=== PATIENT | male | born 1985 | race Caucasian/White ===

== ENCOUNTER 2018-01-16 17:56 | Emergency (ER) | payer OTHER ==
[2018-01-16 17:59] VITALS: BP 141/87; PULSE 98; TEMP 97; BMI 27.8
--- NOTE | 2018-01-16 18:27 | PDOC ---
History of Present Illness - General Chief Complaint: Pain Stated Complaint: RT ANKLE INJURY Time Seen by Provider: 01/16/18 18:06 History Source: Patient Exam Limitations: Clinical Condition - History of Present Illness Initial Comments: 01/16/18 18:23 Patient with no sig Past medical history present with complain of right ankle pain status post twisting ankle while playing baseball yesterday. Patient reports swelling to medial aspect of right ankle and reported pain is worse with ambulation. Denies any other symptoms Timing/Duration: 24 hours Past History - Past Medical History Allergies/Adverse Reactions: Allergies Allergy/AdvReac Type Severity Reaction Status Date / Time No Known Allergies Allergy Verified 01/16/18 17:59 Home Medications: Ambulatory Orders Ibuprofen 800 mg PO Q8H PRN #20 tablet 01/16/18 COPD: No - Suicide/Smoking/Psychosocial Hx Smoking History: Never smoked Have you smoked in the past 12 months: No Number of Cigarettes Smoked Daily: 0 Hx Alcohol Use: No Drug/Substance Use Hx: No Review of Systems - Review of Systems Able to Perform ROS?: Yes Is the patient limited Welsh proficient: No Constitutional: No: Weakness Respiratory: No: Symptoms reported Cardiac (ROS): No: Symptoms Reported Musculoskeletal: Yes: Joint Pain (right ankle), Joint Swelling (right ankle), Muscle Pain (right ankle) Neurological: No: Weakness, Unsteady Gait All Other Systems: Reviewed and Negative *Physical Exam - Vital Signs Last Vital Signs Temp Pulse Resp BP Pulse Ox 97 F L 98 H 18 141/87 99 01/16/18 17:57 01/16/18 17:57 01/16/18 17:57 01/16/18 17:57 01/16/18 17:57 - Physical Exam Comments: 01/16/18 18:26 GENERAL: Well developed, well nourished. Awake and alert. No acute distress. CARDIOVASCULAR: Regular rate and rhythm. No murmurs, rubs, or gallops. PULMONARY: No evidence of respiratory distress. Lungs clear to auscultation bilaterally. No wheezing, rales or rhonchi. ABDOMINAL: Soft. Non-tender. Non-distended. No rebound or guarding. No organomegaly. Normoactive bowel sounds MUSCULOSKELETAL : mild tenderness over posterior paravertebral muscle or thoracic spine of T8-T10 on bilateral sides. No bony deformities EXTREMITIES: No cyanosis. No clubbing. No edema. No calf tenderness. SKIN: Warm and dry. Normal capillary refill. No rashes. No jaundice. NEUROLOGICAL: Alert, awake, appropriate. No motor deficits in the lower extremities. Gait is normal without ataxia. PSYCHIATRIC: Cooperative. Good eye contact. Appropriate mood and affect. General Appearance: Yes: Nourished, Appropriately Dressed, Mild Distress ED Treatment Course - RADIOLOGY Radiology Studies Ordered: Category Date Time Status ANKLE & FOOT-RIGHT* [RAD] Stat Radiology 01/16/18 18:04 Ordered Medical Decision Making - Medical Decision Making 01/16/18 18:25 Patient with no significant past medical history presenting with complain of right ankle pain status post twisting ankle yesterday. Exam significant for moderate swelling to medial aspect of right ankle with moderate tenderness. Right ankle x-ray ordered. Treat based on x-ray results 01/16/18 19:02 X-ray shows evulsion fracture of styloid of lateral malleolus. Patient put on a cast splint and Panchito wrap. Patient given crutches to keep weight off ankle. Referral given for to [facility] 01/16/18 19:43 *DC/Admit/Observation/Transfer Diagnosis at time of Disposition: Ankle fracture, lateral malleolus, closed Qualifiers: Encounter type: initial encounter Fracture alignment: nondisplaced Laterality: left Qualified Code(s): S82.65XA - Nondisplaced fracture of lateral malleolus of left fibula, initial encounter for closed fracture - Discharge Dispostion Disposition: HOME Condition at time of disposition: Stable Decision to Admit order: No - Prescriptions Prescriptions: Ibuprofen 800 mg PO Q8H PRN #20 tablet PRN Reason: pain - Referrals Referrals: Larry Chowdhury MD [Staff Physician] - - Patient Instructions Printed Discharge Instructions: DI for Ankle Fracture Additional Instructions: Take prescribed medication as needed for pain. Keep weights of left ankle on to orthopedics follow-up. Keep left ankle splints on until orthopedics follow-up. - Post Discharge Activity Forms/Work/School Notes: Back to Work
== END 2018-01-16 19:13 | disposition home or self-care (01) ==
LOC: JERFT 17:56
PROC: 2W3QX1Z Immobilization of Right Lower Leg using Splint (ICD-10-PCS; principal; 2018-01-16)
DX: S82.65XA Nondisplaced fracture of lateral malleolus of left fibula, initial encounter for closed fracture (principal); X50.1XXA Overexertion from prolonged static or awkward postures, initial encounter; Y93.64 Activity, baseball; Y92.320 Baseball field as the place of occurrence of the external cause; Y99.8 Other external cause status
CPT/HCPCS: 29515; 73610-TC-RT-FY; 73630-TC-RT-FY; 99281-25

== ENCOUNTER 2018-01-24 06:12 | Day surgery (SDC) | payer OTHER ==
[2018-01-20 15:26] VITALS: BMI 29.2
[~2018-01-24 06:12] MED LIST: CEFAZOLIN 2 GM/D5W 2 GM/50 ML ML IVPB ONE; CELECOXIB 200 MG CAPSULE PO ONE; GABAPENTIN 300 MG CAPSULE (FP) PO ONE; oxyCODONE HCL 10 MG SUSTAINED ACTING TABLET PO ONE
[2018-01-24] MEDS ORDERED: CELECOXIB 200 MG CAPSULE ONE (06:52)
[2018-01-24] MEDS ORDERED: GABAPENTIN 300 MG CAPSULE (FP) ONE (06:52)
[2018-01-24] MEDS ORDERED: oxyCODONE HCL 10 MG SUSTAINED ACTING TABLET ONE (06:52)
[2018-01-24] MEDS ORDERED: MIDAZOLAM HCL 2 MG/2 ML SINGLE DOSE VIAL ONE (07:33)
[2018-01-24] MEDS ORDERED: ROPIVACAINE HCL 0.5% 30ML VIAL ONE (07:33)
[2018-01-24] MEDS ORDERED: DEXAMETHASONE SOD PHOSPHATE/PF 10 MG/ML SDV ONE (07:33)
[2018-01-24] MEDS ORDERED: ceFAZolin SODIUM 1 GM VIAL ONE (07:48)
[2018-01-24] MEDS ORDERED: PROPOFOL 20 ML ONE ×3 (07:48)
--- NOTE | 2018-01-24 07:48 | HP ---
Admitting History and Physical - Admission Chief Complaint: Right ankle fracture History of Present Illness: 32 year old male presents in regard to his right ankle. Status post fracture to his right ankle ~ 1 week ago. Patient complains of pain, limited range of motion and inability to ambulate. Treatment options were discussed with the patient at length. Patient wished to proceed with open reduction and internal fixation of right ankle fracture. History Source: Patient - Past Medical History Additional Past Medical History: Unremarkable - Past Surgical History Additional Past Surgical History: See written history & physical. - Smoking History Smoking history: Never smoked Have you smoked in the past 12 months: No Aproximately how many cigarettes per day: 0 - Alcohol/Substance Use Hx Alcohol Use: No Home Medications - Allergies Allergies/Adverse Reactions: Allergies Allergy/AdvReac Type Severity Reaction Status Date / Time No Known Drug Allergies Allergy Verified 01/20/18 15:10 - Home Medications Home Medications: Ambulatory Orders Oxycodone HCl/Acetaminophen [Percocet 5-325 mg Tablet] 1 tab PO Q8H PRN Review of Systems - Review of Systems Musculoskeletal: reports: Joint Pain (Right ankle), Joint Swelling (Right ankle) Physical Examination Vital Signs: Vital Signs Temperature 98.1 F 01/24/18 06:32 Pulse Rate 75 01/24/18 06:32 Respiratory Rate 18 01/24/18 06:32 Blood Pressure 133/79 01/24/18 06:32 O2 Sat by Pulse Oximetry (%) 98 01/24/18 06:32 Constitutional: Yes: Well Nourished, No Distress Eyes: Yes: Conjunctiva Clear HENT: Yes: Atraumatic Neck: Yes: Supple Cardiovascular: Yes: Regular Rate and Rhythm Respiratory: Yes: Regular Gastrointestinal: Yes: Soft ...Rectal Exam: Yes: Deferred Musculoskeletal: Yes: Joint Swelling (right ankle) Assessment/Plan 32 year old male presents in regard to his right ankle. Status post fracture to his right ankle ~ 1 week ago. Patient complains of pain, limited range of motion and inability to ambulate. Pros, cons, risks benefits and alternatives of a right ankle open reduction and internal fixation was discussed. Patient confirms his understanding and consents to proceed with a right ankle open reduction and internal fixation of right ankle fracture.
[2018-01-24] MEDS ORDERED: oxyCODONE HCL 5 MG TABLET PO PRN ×2 (08:41)
[2018-01-24] MEDS ORDERED: ONDANSETRON 4 MG/2 ML VIAL IVPUSH PRN (08:41)
[2018-01-24] MEDS ORDERED: LACTATED RINGERS SOLUTION 1,000 ML IV SCH (08:45)
[2018-01-24] MEDS ORDERED: BACITRACIN 15 GM TUBE TOPICAL OINTMENT ONE (10:24)
[2018-01-24] MEDS ORDERED: KETOROLAC TROMETHAMINE 30 MG/1 ML VIAL IVPUSH ONE ×2 (11:20→11:29)
[2018-01-24] MEDS ORDERED: traMADol HCL 50 MG TABLET ONE (11:22)
[2018-01-24] MEDS ORDERED: ACETAMINOPHEN INJECTION 100 ML IVPB ONE (11:22)
[2018-01-24] MEDS ORDERED: KETOROLAC TROMETHAMINE 30 MG/1 ML VIAL ONE (11:22)
[2018-01-24] MEDS ORDERED: ACETAMINOPHEN 1000 MG/100 ML VIAL (NON FORMULARY) IVPB ONE ×2 (11:24→11:29)
--- NOTE | 2018-01-24 11:27 | OP ---
Operative Note - Note: Operative Date: 01/24/18 Pre-Operative Diagnosis: right ankle displaced medial malleolus fracture, syndesmosis rupture Operation: ORIF right ankle medial malleolus and syndesmosis tightrope fixation Post-Operative Diagnosis: Same as Pre-op Surgeon: Franki Ulloa [employer] Supervisor: Tyesha Bob Anesthesia: Local Estimated Blood Loss (mls): 100
[2018-01-24] MEDS ORDERED: oxyCODONE HCL 5 MG TABLET PO ONE ×2 (11:31)
[2018-01-24] MEDS ORDERED: oxyCODONE HCL 5 MG TABLET ONE (11:37)
--- NOTE | 2018-01-24 11:44 | DS ---
Physical Examination Vital Signs: Vital Signs Temperature 98.5 F 01/24/18 11:09 Pulse Rate 75 01/24/18 11:20 Respiratory Rate 18 01/24/18 11:20 Blood Pressure 115/70 01/24/18 11:20 O2 Sat by Pulse Oximetry (%) 99 01/24/18 11:20 Discharge Summary Current Active Problems Fracture of medial malleolus of right tibia (Acute) Procedures: Principal: ORIF medial malleolus right ankle, syndesmosis fixation Hospital Course: Admitted for elective surgery as outpt. Procedure performed without complications. Pt received antibiotic prophylaxis and pain control. Ambulated with physical therapy. Stable for discharge home with outpatient followup. Condition: Stable - Instructions Diet, Activity, Other Instructions: Dr. Ulloa - Ankle Fracture Surgery Instructions Keep the splint on and clean/dry until removed by Dr. Ulloa in 14 days Cover it with plastic when you take a bath/shower but be careful not to put weight on it. Call the office for a follow-up appointment with Dr. Ulloa in 14 days. Take one Aspirin 325mg daily for 4 weeks to prevent blood clots in your legs. Take Cephalexin (antibiotic) 3x/day for 14 days to help prevent skin infection. Take Naproxen 500mg twice daily WITH FOOD for 30 days to reduce swelling and inflammation. Take a multivitamin daily. For pain: Take 1 - 2 Percocet (oxycodone/acetaminophen) tablet(s) every 4 hours as needed. Activity: Do not put any weight on the operative leg - use crutches to walk at all times. Elevate the ankle as much as possible and place ice on top of the dressing over the ankle. Expect to see swelling/bruising in your toes. After your follow-up appointment, the splint will be removed and you will be placed in a cast for 2 weeks. After 2 weeks in the cast you will be placed back in the boot and allowed to walk with weight on the ankle. After 8 weeks total you will be sent for physical therapy. Generally speaking, it takes about 8-12 weeks for a fracture to heal. Disposition: HOME - Home Medications Comprehensive Discharge Medication List: Ambulatory Orders Cephalexin Monohydrate [Keflex -] 500 mg PO TID #42 capsule 01/24/18 Naproxen 500 mg PO BID #60 tablet 01/24/18 Oxycodone HCl/Acetaminophen [Percocet 5-325 mg Tablet] 1 - 2 tab PO Q4H PRN #60 tablet MDD 10 01/24/18
[2018-01-24 12:20] VITALS: TEMP 98.4
[2018-01-24 13:59] VITALS: BP 115/75; PULSE 64
--- NOTE | 2018-01-25 10:36 | OP ---
DATE OF OPERATION: 01/24/2018 PREOPERATIVE DIAGNOSIS: Right medial malleolus ankle fracture and syndesmosis injury. POSTOPERATIVE DIAGNOSIS: Right medial malleolus ankle fracture and syndesmosis injury. PROCEDURE: Open reduction, internal fixation of right ankle medial malleolus fracture, displaced medial malleolus fracture, and TightRope fixation of syndesmosis injury. ATTENDING DOCTOR: Franki Ulloa MD TANK BUILDER HELPER: YOLI Escobedo ANESTHESIA: Regional block plus sedation. ESTIMATED BLOOD LOSS: 100 mL. COMPLICATIONS: None. DISPOSITION: The patient was awakened and transferred to the PACU in stable condition. IMPLANTS USED: Arthrex 4-0 cannulated screws x3, Arthrex Syndesmosis TightRope x2, and 2-0 TightRope plate. INDICATIONS: This is a 32-year-old male who injured his right ankle while playing soccer when his cleat got stuck on the ground causing an eversion type injury to his right ankle. He had immediate pain and swelling and was taken to the emergency room where he was diagnosed with a displaced medial malleolus fracture. He was seen and examined by Dr. Ulloa in the office as an outpatient and was found to have significant fracture displacement as well as widening of the tibiofibular overlap on the mortise view and widening of the mortise. He was diagnosed with a displaced medial malleolus fracture and a syndesmosis injury. Findings were discussed with the patient, and he was indicated for surgery as this injury was not likely to heal in an anatomic positon nonoperatively. The risks, benefits, and alternatives to the procedure were explained to the patient in great detail, and he elected to proceed with the surgery. DESCRIPTION OF PROCEDURE: On the day of OR, the patient was brought into the OR and placed supine on the OR table. All bony prominences were padded. Regional anesthesia and sedation were administered by the anesthesiologist. A tourniquet was placed on the right lower extremity. A bump was placed under the sacrum on the right side. The right lower extremity was then prepped and draped in the usual sterile fashion. A time-out was then performed by the team to confirm the patients name, side, site, procedure, and availability of implants. An Esmarch bandage was then used to exsanguinate the right lower extremity, and the tourniquet was inflated to 300 mmHg. Standard medial approach was then performed using a longitudinal incision approximately 5 cm exposing the medial malleolar fracture. The fracture was noted to be a single large fracture fragment without any obvious impaction of the medial tibial plafond or any chondral injury to the talus. The fracture site was distracted and the joint was irrigated of any debris. Next, a K-wire was placed in the fracture fragment and used as a joystick to push the fragment into place in an anatomic positon. A fracture reduction clamp was then placed for additional provisional fixation. The articular surface was evaluated both with direct visualization as well as with fluoroscopy, and the fragment was found to be anatomically reduced. K-wires were then placed for additional provisional fixation. One 4-0 cancellous screw was placed into the main fragment into the distal tibial metaphysis. Once this was placed, the fracture reduction clamp was removed, and additional fluoroscopic views were taken, and the fracture again was found to be reduced, and the joint line was congruent. An additional 4-0 screw was placed for additional fixation anterior to the initial screw. Because of the size of the fragment, we elected to place an additional posterior screw. K-wire was placed parallel to the anterior and medial K-wires, and a 3rd screw was placed in the posterior aspect of the fragment up into the distal tibial metaphysis. Cortex was then drilled, and another 4-0 screw was placed. Fluoroscopy was then used to check the final position of the fragments, the joint line, and all screws, and all were found to be in appropriate position. Attention was then turned to the syndesmosis. C-arm fluoroscopy was used to confirm excellent reduction of the ankle mortise with fixation of the medial malleolus fracture. However, there was some widening of the mortise, which increased external rotation of the foot. Therefore, decision was placed to fix the syndesmosis. An approximately 3-cm lateral incision was made over the fibula starting approximately 1.5 cm proximal to the joint line. A K-wire was placed from the fibula over to the medial side of the tibia parallel to the joint line and at approximately 30-degree angle anteriorly. Position of this K-wire was confirmed with fluoroscopy. An Arthrex 2-hole syndesmosis buttress plate was then placed over the K-wire, and a 2nd K-wire was placed in the plate for provisional fixation through the medial provisional fixation hole. Fluoroscopy was then used to confirm its placement, and then, a 3rd K-wire was then placed through the proximal hole of the plate parallel to the 1st K-wire across to the medial side of the tibia. A drill was then used to drill hole over the lower most K-wire, and an Arthrex Syndesmosis TightRope was placed through here. The medial button was directly visualized and was flipped to gain purchase on the medial cortex of the tibia, and then, the lateral button of the TightRope was then synched down into place, and the sutures were tightened, so that the syndesmosis was reduced, and the button was flush with the hole in the plate. The same procedure was performed for the proximal K-wire, and a 2nd Syndesmosis TightRope was placed. Once this was completed, the provisional fixation K-wire was removed, all sutures were cut, and the joint line and implant position were confirmed using fluoroscopy for multiple views. All wounds were then thoroughly irrigated with normal saline. No. 1 Vicryl sutures were used to close the deep tissues and cover the hardware. The 2-0 Vicryl sutures were used for the deep subcutaneous tissues. A 3-0 V-Loc 90 monofilament running barbed suture was used for the skin. Bacitracin ointment and Xeroform gauze was then placed over this, as well as additional sterile gauze and cast padding. A fiberglass AO splint was then applied to the right lower extremity. The patient was then awakened and taken to the PACU in stable condition. Ector [id number]
== END 2018-01-24 13:35 | disposition home or self-care (01) ==
LOC: FASU 06:12
PROVIDERS: ATTEND Student in an Organized Health Care Education/Training Program
PROC: 0SSF0ZZ Reposition Right Ankle Joint, Open Approach (ICD-10-PCS; 2018-01-24)
PROC: 0QSG04Z Reposition Right Tibia with Internal Fixation Device, Open Approach (ICD-10-PCS; principal; 2018-01-24 08:50)
DX: S82.51XA Displaced fracture of medial malleolus of right tibia, initial encounter for closed fracture (principal); S93.431A Sprain of tibiofibular ligament of right ankle, initial encounter; X58.XXXA Exposure to other specified factors, initial encounter; Y93.9 Activity, unspecified; Y92.9 Unspecified place or not applicable
CPT/HCPCS: 73610-TC-RT-FY; 76001-TC-FY; 94760; J0131

== ENCOUNTER 2020-06-08 13:54 | Emergency (ER) | payer OTHER ==
[2020-06-08 14:03] VITALS: TEMP 98.9; BMI 31.0
[2020-06-08] MEDS ORDERED: MAG HYDROX/AL HYDROX/SIMETH 30 ML UNIT-DOSE CUP PO ONE (15:10)
[2020-06-08] MEDS ORDERED: SODIUM CHLORIDE 0.9% 500 ML INFUS.BAG IV ONE (15:10)
[2020-06-08] MEDS ORDERED: PANTOPRAZOLE SODIUM 40 MG VIAL IVPUSH ONE (15:10)
[2020-06-08] MEDS ORDERED: PANTOPRAZOLE SODIUM 40 MG/100 ML BAG IVPB ONE (15:27)
[2020-06-08] MEDS ORDERED: MAG HYDROX/AL HYDROX/SIMETH 30 ML UNIT-DOSE CUP ONE (15:27)
[2020-06-08 16:10] LABS: BASO % 0.5 % (0-2.0); HEMATOCRIT 43.2 % (35.4-49); HEMOGLOBIN 14.4 GM/dL (11.7-16.9); LYMPH % 14.3 % (8-40); MCH 28.3 pg (25.7-33.7); MCHC 33.3 g/dl (32.0-35.9); MEAN CELL VOLUME 84.9 fl (80-96); MEAN PLT VOLUME 9.7 fl (7.5-11.1); MONO % 8.6 % (3.8-10.2); NEUT % 75.6 % (42.8-82.8); PLATELET COUNT 270 K/MM3 (134-434); RBC 5.08 M/mm3 (4.00-5.60); RDW 13.1 % (11.9-15.9); WHITE BLOOD COUNT 9.5 K/mm3 (4.0-10.0)
[2020-06-08 17:02] LABS: CHLORIDE 106 mmol/L (98-107); POTASSIUM 4.5 mmol/L (3.5-5.1); SODIUM 141 mmol/L (136-145)
[2020-06-08 17:04] LABS: ALBUMIN 4.4 g/dl (3.4-5.0); ANION GAP 8 MMOL/L (8-16); CALCIUM 9.7 mg/dL (8.5-10.1); CO2 27 mmol/L (21-32); GLUCOSE,RANDOM 91 mg/dL (74-106)
[2020-06-08 17:07] LABS: CREATININE 0.9 mg/dL (0.55-1.3); SGPT/ALT 167 U/L (13-61)
[2020-06-08 17:08] LABS: SGOT/AST 185 U/L (15-37)
[2020-06-08 17:09] LABS: BILIRUBIN,TOTAL 1.2 mg/dL (0.2-1); TOT PROT 7.8 g/dl (6.4-8.2)
[2020-06-08 17:10] LABS: ALK PHOS 99 U/L (45-117)
[2020-06-08 20:00] VITALS: BP 127/73; PULSE 84
== END 2020-06-08 19:59 | disposition home or self-care (01) ==
LOC: JER 13:54
PROC: 3E033GC Introduction of Other Therapeutic Substance into Peripheral Vein, Percutaneous Approach (ICD-10-PCS; principal; 2020-06-08)
DX: K80.20 Calculus of gallbladder without cholecystitis without obstruction (principal)
CPT/HCPCS: 36415; 71046-TC-FY; 76705-TC; 80053; 84484; 85025; 93005; 93010; 99285-25